=== PATIENT | female | born 1955 | race African-American/Black ===

== ENCOUNTER → 2017-07-08 | Outpatient (CLI) | payer OTHER | LOC: RAD 01:27 | DX: Z12.31 Encounter for screening mammogram for malignant neoplasm of breast (principal) ==

== ENCOUNTER → 2018-07-10 | Outpatient (CLI) | payer OTHER | LOC: RAD 01:37 | DX: Z12.31 Encounter for screening mammogram for malignant neoplasm of breast (principal) ==

== ENCOUNTER → 2019-07-11 | Outpatient (CLI) | payer OTHER | LOC: BC 13:34 | DX: Z12.31 Encounter for screening mammogram for malignant neoplasm of breast (principal) ==

== ENCOUNTER → 2020-07-17 | Outpatient (CLI) | payer OTHER | LOC: BC 07-14 09:07 | PROVIDERS: ATTEND Family Medicine | DX: Z12.31 Encounter for screening mammogram for malignant neoplasm of breast (principal) ==

== ENCOUNTER → 2021-07-22 | Outpatient (CLI) | payer OTHER | LOC: BC 07-20 13:23 | PROVIDERS: ATTEND Family Medicine | DX: Z12.31 Encounter for screening mammogram for malignant neoplasm of breast (principal) ==